=== PATIENT | male | born 1990 | race Caucasian/White ===

== ENCOUNTER 2016-12-16 13:51 | Emergency (ER) | payer MEDICAID ==
[2016-12-16] MEDS ORDERED: DEXAMETHASONE 10 MG/ML VIAL PO STA (16:42)
[2016-12-16] MEDS ORDERED: KETOROLAC 60 MG/2 ML VIAL IM STA (16:42)
[2016-12-16] MEDS ORDERED: DEXAMETHASONE 10 MG/ML VIAL ONE (16:49)
[2016-12-16] MEDS ORDERED: KETOROLAC 60 MG/2 ML VIAL ONE (16:49)
[2016-12-16] MEDS ORDERED: CHERRY SYRUP 10 ML UDC PO ONE (16:49)
[2016-12-16] MEDS ORDERED: HYDROmorphone 1 MG/ML SYRINGE IM STA (17:20)
[2016-12-16] MEDS ORDERED: ONDANSETRON ODT 4 MG TABLET TL STA (17:20)
[2016-12-16] MEDS ORDERED: ONDANSETRON ODT 4 MG TABLET ONE (17:30)
[2016-12-16] MEDS ORDERED: HYDROmorphone 1 MG/ML SYRINGE ONE (17:30)
== END 2016-12-16 17:42 | disposition home or self-care (01) ==
DX: M54.42 Lumbago with sciatica, left side (principal); G89.29 Other chronic pain; F17.200 Nicotine dependence, unspecified, uncomplicated
CPT/HCPCS: 96372; 99283; 99284; A9270; J1170; Q0162

== ENCOUNTER 2017-01-01 | Emergency (ER) | payer MEDICAID | END 2017-01-01 16:26 | disposition home or self-care (01) ==

== ENCOUNTER 2017-02-09 08:34 | Outpatient (CLI) | payer MEDICAID ==
[2017-02-09] MEDS ORDERED: GADOBUTROL 10 MMOL/10 ML VIAL IVP ONE (09:38)
== END 2017-02-09 08:35 | disposition home or self-care (01) ==
DX: M51.16 Intervertebral disc disorders with radiculopathy, lumbar region (principal); M48.06 Spinal stenosis, lumbar region
CPT/HCPCS: 72158; A9585

== ENCOUNTER 2018-01-25 11:29 | Outpatient (CLI) | payer MEDICAID ==
--- NOTE | 2018-01-25 13:41 | XRAY Report ---
THREE VIEW LEFT HAND: 01/25/2018 CLINICAL INDICATION: Pain. FINDINGS: AP, lateral, oblique views of the left hand demonstrate no evidence of fracture or dislocation. The joint spaces are preserved. No radiopaque foreign body is seen in the soft tissues. IMPRESSION: NORMAL LEFT HAND. TD: 01/25/2018 13:40
--- NOTE | 2018-01-25 13:42 | XRAY Report ---
FOUR VIEW LEFT WRIST: 01/25/2018 CLINICAL INDICATION: Pain. FINDINGS: AP, lateral, oblique, scaphoid views of the left wrist demonstrate no evidence of fracture or dislocation. The joint spaces are preserved. No radiopaque foreign body is seen in the soft tissues. IMPRESSION: NORMAL LEFT WRIST. TD: 01/25/2018 13:41
== END 2018-01-25 11:30 | disposition home or self-care (01) ==
LOC: DI.N 11:29
PROVIDERS: ATTEND Family Medicine
DX: M79.642 Pain in left hand (principal); M25.532 Pain in left wrist

== ENCOUNTER 2018-01-29 11:29 | Outpatient (CLI) | payer MEDICAID ==
--- NOTE | 2018-01-29 13:32 | XRAY Report ---
COMPLETE CERVICAL SPINE: 01/29/2018 CLINICAL INDICATION: Neck pain. FINDINGS: AP, lateral, oblique, odontoid views of the cervical spine are compared to previous MRI of 05/06/2014. Minimal anterolisthesis of C2 on C3 is stable from MRI. There is no evidence of interval fracture or subluxation. The prevertebral soft tissues are unremarkable. Minimal osseous neural foraminal narrowing is noted at C3-C4 bilaterally. IMPRESSION: NO SIGNIFICANT INTERVAL CHANGE FROM PREVIOUS MRI. NO EVIDENCE OF INTERVAL FRACTURE. TD: 01/29/2018 13:31
== END 2018-01-29 11:30 | disposition home or self-care (01) ==
LOC: DI.N 11:29
PROVIDERS: ATTEND Family Medicine
DX: M54.2 Cervicalgia (principal)
CPT/HCPCS: 72050

== ENCOUNTER 2018-08-11 09:19 | Outpatient (CLI) | payer MEDICAID ==
--- NOTE | 2018-08-11 15:24 | MRI Report ---
Reason: SCIATICA DISC DEGENERATION Procedure Date: 08/11/2018 Accession Number: [id number] / [id number] Procedure: MRI - Lumbar Spine W/O CPT Code: FULL RESULT: EXAM: MRI LUMBAR SPINE WITHOUT CONTRAST EXAM DATE: 08/11/2018 10:05 AM. CLINICAL HISTORY: 28-year-old male. SCIATICA DISC DEGENERATION. COMPARISON: LUMBAR SPINE W/WO 02/09/2017 8:58 AM. TECHNIQUE: Multiplanar, multisequence T1-weighted and fluid-sensitive sequences of the lumbar spine from T12 to S1 without contrast. Other: None. FINDINGS: Spinal Canal: The conus terminates at L1. The conus medullaris and cauda equina are unremarkable. Alignment: No scoliosis or spondylolisthesis. Bone Marrow: Five wrz-mat-[id number] lumbar vertebral bodies are assumed. No gross fractures or bone lesions. No bone marrow replacement. Disk Levels/Facets: T10-T11: Moderate disk height loss and desiccation. Moderate diffuse disk bulge. Mild to moderate central canal narrowing. No foraminal narrowing. No interval progression. T11-T12: Unremarkable. T12-L1: Mild diffuse disk bulge. No significant central canal or foraminal narrowing. L1-L2: Mild disk height loss and desiccation. Mild diffuse disk bulge. No significant central canal or foraminal narrowing. No interval progression. L2-L3: Moderate disk height loss and desiccation. Moderate diffuse disk bulge with an annular fissure. Mild central canal narrowing. No foraminal narrowing. No interval progression. L3-L4: Status post left hemilaminotomy. Moderate disk height loss and desiccation. Mild to moderate diffuse disk bulge. Mild bilateral facet arthropathy. No residual central canal narrowing. Mild bilateral foraminal narrowing. No interval progression. L4-L5: Status post left hemilaminotomy. Moderate to severe disk height loss and desiccation. Moderate diffuse disk bulge with superimposed left central disk protrusion measuring 4 mm (series 601 image 9) this is decreased since the prior study. Also the previously seen left anterior epidural sequestered fragment is no longer noted. Mild central canal narrowing, improved since the prior study. Moderate left and [id number] right foraminal narrowing. The foraminal narrowing is unchanged. Moderate left lateral recess narrowing with mass-effect on traversing left S1 nerve, slightly decreased L5-S1: Moderate to severe disk height loss and desiccation. Moderate bilateral facet arthropathy. Mild diffuse disk bulge. No significant central canal narrowing. Mild bilateral foraminal narrowing. No interval progression Musculature: Normal. No edema or fatty atrophy. Other: The partially visualized retroperitoneum is unremarkable. IMPRESSION: 1. Moderate multilevel degenerative spondylosis, as detailed above and summarized below. There has been slight interval improvement of central canal/foraminal narrowing at the L4-L5 level, as detailed above. The remaining lumbar levels are unchanged. No evidence of acute fracture or malalignment. No bone marrow edema. No cord signal abnormality. 2. T10-T11 level demonstrates mild to moderate central canal narrowing. No foraminal narrowing. No interval progression. 3. L2-L3 level demonstrates mild central canal narrowing. No foraminal narrowing. No interval progression. 4. L3-L4 level demonstrates no residual central canal narrowing. Mild bilateral foraminal narrowing. No interval progression. 5. L4-L5 level demonstrates a moderate diffuse disk bulge with superimposed left central disk protrusion measuring 4 mm (series 601 image 9), this is decreased since the prior study. Also the previously seen left anterior epidural sequestered disk fragment is no longer noted. Mild central canal narrowing, improved since the prior study. Moderate left and skng-bl-[id number] right foraminal narrowing. The foraminal narrowing is unchanged. Moderate left lateral recess narrowing with mass-effect on traversing left S1 nerve, slightly decreased 6. L5-S1 level demonstrates no significant central canal narrowing. Mild bilateral foraminal narrowing. No interval progression Comment: The following findings are so common in adults without low back pain that while we report their presence, they must be interpreted with caution and in the context of the clinical situation. (Reference Cesark et al, Spine 2001) Prevalence of findings in patients without low back pain: Disk degeneration (any evidence): 92% Disk desiccation/T2 signal loss: 83% Disk height loss: 56% Disk bulge: 64% Disk protrusion: 32% Annular tear/high intensity zone: 38% RADIA
== END 2018-08-11 09:20 | disposition home or self-care (01) ==
LOC: DI 09:19
PROVIDERS: ATTEND Family Medicine
DX: M51.16 Intervertebral disc disorders with radiculopathy, lumbar region (principal); M51.36 Other intervertebral disc degeneration, lumbar region; M47.896 Other spondylosis, lumbar region; M48.061 Spinal stenosis, lumbar region without neurogenic claudication
CPT/HCPCS: 72148

== ENCOUNTER 2018-11-13 10:35 | Outpatient (CLI) | payer MEDICAID ==
--- NOTE | 2018-11-13 13:31 | Ultrasound Report ---
Reason: CERVICALGIA,UNQUALIFIED VISUAL LOSS,BOTH EYES Procedure Date: 11/13/2018 Accession Number: [id number] / [id number] Procedure: US - Carotid Doppler Complete CPT Code: FULL RESULT: EXAM: BILATERAL CAROTID AND VERTEBRAL ARTERY DUPLEX DOPPLER ULTRASOUND: EXAM DATE: 11/13/2018 11:12 AM CLINICAL HISTORY: Cervicalgia, unqualified visual loss, both eyes. COMPARISON: None. TECHNIQUE: Grayscale imaging, color Doppler, and duplex spectral Doppler were used to evaluate the carotid and vertebral arteries bilaterally. Static images were obtained. FINDINGS: No significant plaque is identified in the right or left common or internal carotid arteries. Normal antegrade flow is present in bilateral vertebral arteries. VELOCITIES (cm/sec): Right CCA mid: PSV 125 cm/sec CCA dist: PSV 111 cm/sec ICA prox: PSV 88 cm/sec, EDV 30 cm/sec ICA mid: PSV 80 cm/sec, EDV 36 cm/sec ICA dist: PSV 72 cm/sec, EDV 31 cm/sec ECA: PSV 114 cm/sec Vert: PSV 48 cm/sec ICA/CCA: 0.70 Left CCA mid: PSV 113 cm/sec CCA dist: PSV 101 cm/sec ICA prox: PSV 80 cm/sec, EDV 26 cm/sec ICA mid: PSV 97 cm/sec, EDV 34 cm/sec ICA dist: PSV 88 cm/sec, EDV 35 cm/sec ECA: PSV 87 cm/sec Vert: PSV 49 cm/sec ICA/CCA: 0.85 ICA diameter stenosis: Right: Normal by velocity and <70% by NASCET criteria. Left: Normal by velocity and <70% by NASCET criteria. IMPRESSION: 1. No significant bilateral carotid artery plaquing. 2. In the right carotid artery there are no elevated carotid artery velocities to suggest hemodynamically significant stenosis. 3. In the left carotid artery there are no elevated carotid artery velocities to suggest hemodynamically significant stenosis. 4. Normal antegrade flow is present in bilateral vertebral arteries. General Recommendations: Stenosis =50% ICA - Follow-up ultrasound 6-12 months Stenosis <50% ICA - High Risk Patient with plaque - Follow-up ultrasound 1-2 years Normal Study but High Risk Patient - Follow-up ultrasound 3-5 years Management recommendations and diagnostic criteria are based on current IAC endorsed standards in Carotid Artery Stenosis: Grayscale and Doppler Ultrasound Diagnosis. Validated velocity measurements with angiographic measurements and velocity criteria are extrapolated from diameter data as defined by the Society of Radiologists in Ultrasound Consensus Conference Radiology 2003; 229;340-346. RADIA
--- NOTE | 2018-11-13 13:44 | XRAY Report ---
Reason: CERVICALGIA Procedure Date: 11/13/2018 Accession Number: [id number] / [id number] Procedure: XR - Cervical Spine Complete CPT Code: FULL RESULT: EXAM: CERVICAL SPINE RADIOGRAPHY EXAM DATE: 11/13/2018 11:20 AM. CLINICAL HISTORY: CERVICALGIA. COMPARISONS: CERVICAL SPINE COMPLETE 01/29/2018 11:49 AM CERVICAL SPINE 05/06/2014 10:34 AM. TECHNIQUE: 5 views. FINDINGS: Alignment: There is similar minimal 2 mm anterolisthesis at C2-C3 which may be degenerative. Alignment is otherwise normal. Bones: The cervical vertebral bodies and posterior elements are well visualized from the skull base through C7-T1. No fractures or bone lesions. Disks: Stable mild anterior disk height loss at C2-C3. Disk heights are otherwise preserved without significant degenerative endplate changes. There is apparent minor mid to lower cervical facet degeneration. There is evidence of at least mild bony neural foraminal stenosis on the right at C3-C4, C4-C5, C5-C6, and on the left at C4-C5 and C6-C7. Facets: As above. Soft Tissues: No prevertebral soft tissue swelling. The visualized lung apices are clear. IMPRESSION: 1. No acute osseous abnormality. 2. Stable minimal anterolisthesis of C2 on C3. 3. Minimal cervical degenerative changes. RADIA
== END 2018-11-13 10:36 | disposition home or self-care (01) ==
LOC: DI 10:35
PROVIDERS: ATTEND Family Medicine
DX: M50.31 Other cervical disc degeneration, high cervical region (principal); M48.02 Spinal stenosis, cervical region; H54.3 Unqualified visual loss, both eyes
CPT/HCPCS: 72050; 93880

== ENCOUNTER 2019-07-09 07:26 | Outpatient (CLI) | payer MEDICAID ==
[2019-07-09] MEDS ORDERED: GADOBUTROL 10 MMOL/10 ML VIAL ONE (07:33)
[2019-07-09] MEDS ORDERED: GADOBUTROL 10 MMOL/10 ML VIAL IVP ONE (09:55)
--- NOTE | 2019-07-11 07:26 | MRI Report ---
Reason: VISUAL LOSS, TRANSIENT, BILATERAL Procedure Date: 07/09/2019 Accession Number: [id number] / [id number] Procedure: MRI - Angio Brain W/O (MRA) CPT Code: FULL RESULT: EXAM MRA BRAIN EXAM DATE: 07/09/2019 08:31 AM. CLINICAL HISTORY: 29-year-old man with transient bilateral vision loss. COMPARISON: None. TECHNIQUE: Multiplanar, multisequence MRA sequences of the brain were performed. Other: None. Post-processing: Multiplanar 3D MIP reconstructions. IV Contrast: None. FINDINGS: RIGHT: - Visualized Internal Carotid: Patent without significant stenosis or aneurysm. - Anterior Cerebral: Patent without significant stenosis or aneurysm. - Middle Cerebral: Patent without significant stenosis or aneurysm. - Posterior Cerebral: Patent without significant stenosis or aneurysm. - Posterior Communicating: Not well seen. - Visualized Vertebral: Patent without significant stenosis or dissection. LEFT: - Visualized Internal Carotid: Patent without significant stenosis or aneurysm. - Anterior Cerebral: Patent without significant stenosis or aneurysm. - Middle Cerebral: Patent without significant stenosis or aneurysm. - Posterior Cerebral: Patent without significant stenosis or aneurysm. - Posterior Communicating: Not well seen. - Visualized Vertebral: Patent without significant stenosis or dissection. CENTRAL: - Anterior Communicating: Patent. No aneurysm. - Basilar: Patent without significant stenosis, dissection, or aneurysm. IMPRESSION: 1. Normal MRA of the head. No significant vascular stenosis or aneurysm. RADIA
--- NOTE | 2019-07-11 07:52 | MRI Report ---
Reason: VISUAL LOSS, TRANSIENT, BILATERAL Procedure Date: 07/09/2019 Accession Number: [id number] / [id number] Procedure: MRI - Brain W/WO CPT Code: FULL RESULT: EXAM: MRI BRAIN WITHOUT AND WITH CONTRAST EXAM DATE: 07/09/2019 09:53 AM. CLINICAL HISTORY: 29-year-old man with transient bilateral visual loss. COMPARISON: None. TECHNIQUE: Multiplanar, multisequence T1-weighted and fluid-sensitive MR sequences of the brain were performed. Sequences optimized for routine evaluation. Other: None. IV Contrast: . FINDINGS: Parenchyma: No evidence of acute infarct on diffusion weighted sequence. Parenchyma demonstrates normal signal intensity on T1- and T2-weighted sequences. No evidence of prior hemorrhage on susceptibility weighted sequence. No abnormal enhancement. Pituitary: Unremarkable. Ventricles and Extra-axial Spaces: Ventricles are symmetric and normal in size for age. Extra-axial spaces are unremarkable. No abnormal enhancement. Orbits: Unremarkable. Sinuses: Paranasal sinuses and mastoid air cells are clear. Major Vascular Flow Voids: Intact. Dural Venous Sinuses and Major Central Veins: Patent on post-contrast images. IMPRESSION: 1. Normal brain MRI. No evidence of infarct, hemorrhage, or mass lesion. RADIA
--- NOTE | 2019-07-12 16:47 | MRI Report ---
Reason: VISUAL LOSS, TRANSIENT, BILATERAL Procedure Date: 07/09/2019 Accession Number: [id number] / [id number] Procedure: MRI - Angio Neck W/WO (MRA) CPT Code: FULL RESULT: EXAM: MR ANGIOGRAM NECK EXAM DATE: 07/09/2019 11:35 AM. CLINICAL HISTORY: 29-year-old man with transient bilateral visual loss. COMPARISON: None. TECHNIQUE: Multiplanar, multisequence MRA sequences of the neck were performed. Other: None. Post-processing: Multiplanar 3D MIP reconstructions. IV Contrast: 10 cc Gadavist. Evaluation of arterial stenosis is based on a NASCET method of measurement. FINDINGS: RIGHT Common Carotid: Patent. No dissection or significant stenosis. Internal Carotid: Patent. No dissection or significant stenosis. External Carotid: Patent. No dissection or significant stenosis. Vertebral: Patent. No dissection or significant stenosis. LEFT Common Carotid: Patent. No dissection or significant stenosis. Internal Carotid: Patent. No dissection or significant stenosis. External Carotid: Patent. No dissection or significant stenosis. Vertebral: Patent. No dissection or significant stenosis. Other: Limited evaluation of the neck soft tissues is unremarkable. IMPRESSION: 1. Normal. No significant vascular stenosis or dissection. RADIA
== END 2019-07-09 07:27 | disposition home or self-care (01) ==
LOC: DI 07:26
PROVIDERS: ATTEND Psychiatry & Neurology Vascular Neurology
DX: H53.123 Transient visual loss, bilateral (principal)
CPT/HCPCS: 70549; 70553; A9585; 70544

== ENCOUNTER 2020-07-26 11:21 | Outpatient (CLI) | payer MEDICAID ==
[2020-07-26] MEDS ORDERED: IOVERSOL 320 100 ML VIAL IVP ONE (16:10)
== END 2020-07-26 11:22 ==
LOC: EMS 11:21
PROVIDERS: ATTEND Surgery
DX: M79.605 Pain in left leg (principal); M54.5 Low back pain; M25.552 Pain in left hip

== ENCOUNTER 2020-07-26 15:08 | Emergency (ER) | payer OTHER, MEDICAID ==
[2020-07-26] MEDS ORDERED: KETOROLAC 30 MG/ML VIAL IVP STA (15:52)
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
[2020-07-26 16:18] LABS: BASOPHILS # (AUTO) 0.1 10^3/uL (0.0-0.1); BASOPHILS % (AUTO) 0.3 %; EOSINOPHILS # (AUTO) 0.1 10^3/uL (0.0-0.7); EOSINOPHILS % (AUTO) 0.8 %; HGB - HEMOGLOBIN 12.9 g/dL (14.0-18.0); LYMPHOCYTES # (AUTO) 2.1 10^3/uL (1.5-3.5); LYMPHOCYTES % (AUTO) 11.4 %; MEAN CORPUSCULAR HEMOGLOBIN 31.1 pg (27.0-31.0); MEAN CORPUSCULAR HGB CONC 33.9 g/dL (32.0-36.0); MEAN CORPUSCULAR VOLUME 91.6 fL (80.0-94.0); MEAN PLATELET VOLUME 13.5 fL (7.4-11.4); MONOCYTES # (AUTO) 0.8 10^3/uL (0.0-1.0); MONOCYTES % (AUTO) 4.4 %; NEUTROPHILS # (AUTO) 14.8 10^3/uL (1.5-6.6); NEUTROPHILS % (AUTO) 82.5 %; PLT - PLATELET COUNT 213 10^3/uL (130-450); RED BLOOD COUNT 4.15 10^6/uL (4.70-6.10); RED CELL DISTRIBUTION WIDTH 14.3 % (12.0-15.0); WHITE BLOOD COUNT 17.9 x10^3/uL (4.8-10.8)
[2020-07-26 16:36] LABS: ALBUMIN 4.4 g/dL (3.2-5.5); ALBUMIN/GLOBULIN RATIO 1.5 (1.0-2.2); ALKALINE PHOSPHATASE 69 IU/L (42-121); ALT ALANINE AMINOTRANSFERASE 39 IU/L (10-60); AST ASPARTATE AMINOTRANSFERASE 40 IU/L (10-42); BUN - BLOOD UREA NITROGEN 11 mg/dL (6-20); CALCIUM 9.1 mg/dL (8.5-10.3); CARBON DIOXIDE - CO2 23 mmol/L (21-32); CHLORIDE 105 mmol/L (101-111); CREATININE 0.9 mg/dL (0.6-1.2); GLUCOSE 112 mg/dL (70-100); LIPASE 22 U/L (22-51); SODIUM 139 mmol/L (135-145); TOTAL PROTEIN 7.3 g/dL (6.7-8.2)
--- NOTE | 2020-07-26 17:17 | CT Report ---
PROCEDURE: CERVICAL SPINE WO INDICATIONS: Neck trauma, midline tenderness TECHNIQUE: Noncontrast 3 mm thick sections acquired from the skull base to the T4 level. Sagittal and coronal r eformats were then constructed. For radiation dose reduction, the following was used: automated exp osure control, adjustment of mA and/or kV according to patient size. COMPARISON: None. FINDINGS: Image quality: Excellent. Bones: No fractures or dislocations. Visualized superior ribs are intact. Note is made of an ovoid centrally lucent peripherally calcified structure measuring up to 1.0 x 1.3 cm at the posterior jeff in of the C1-C2 facet joint, likely chronic. Soft tissues: Prevertebral soft tissues are normal in thickness. No paravertebral hematomas. No ap ical pneumothoraces. IMPRESSION: No acute trauma found but there is an unusual ovoid cystic-like structure with peripheral calcificati on involving the posterior margin of the C1-C2 facet joint articulation which may impinge on the frances vidual nerve root and etiology is uncertain. Therefore follow-up elective contrast-enhanced MR scanni ng is recommended for this patient in the near future. Please correlate for left-sided symptomatology from the past that may be referrable to this structure. Reviewed by: Valentino Davidson MD on 07/26/2020 5:15 PM PDT Approved by: Valentino Davidson MD on 07/26/2020 5:15 PM PDT Station ID: [id number]
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
[2020-07-26 17:20] LABS: MUDS CUTOFF CONCENTRATIONS CUTOFF CONC BELOW:
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
[2020-07-26] MEDS ORDERED: IOVERSOL 320 100 ML VIAL IVP ONE (17:35)
[2020-07-26 17:38] LABS: AMPHETAMINE SCREEN,URINE NEGATIVE (NEGATIVE); BENZODIAZEPINES SCREEN, URINE NEGATIVE (NEGATIVE); COCAINE SCREEN URINE NEGATIVE (NEGATIVE); METHADONE SCREEN, URINE NEGATIVE (NEGATIVE); METHAMPHETAMINES SCREEN, URINE NEGATIVE (NEGATIVE); OPIATE SCREEN, URINE POSITIVE (NEGATIVE); OXYCODONE SCREEN, URINE NEGATIVE (NEGATIVE); PROPOXYPHENE SCREEN, URINE NEGATIVE (NEGATIVE); TRICYCLIC ANTIDEPRESSANT,URINE NEGATIVE (NEGATIVE)
[2020-07-26 18:03] VITALS: BP 107/56
== END 2020-07-26 18:13 | disposition home or self-care (01) ==
LOC: ED 15:08
DX: Z04.1 Encounter for examination and observation following transport accident (principal); R93.7 Abnormal findings on diagnostic imaging of other parts of musculoskeletal system; F17.200 Nicotine dependence, unspecified, uncomplicated
CPT/HCPCS: 36415; 70450; 71260; 72125; 74177; 80053; 80306; 80320; 83690; 85025; 96374; 99284

== ENCOUNTER 2021-01-28 08:01 | Outpatient (CLI) | payer OTHER, MEDICAID | END 2021-01-28 08:02 | disposition EMS.NT | LOC: EMS 08:01 | DX: S00.81XA Abrasion of other part of head, initial encounter (principal); S40.212A Abrasion of left shoulder, initial encounter; M54.2 Cervicalgia; R07.89 Other chest pain; V47.5XXA Car driver injured in collision with fixed or stationary object in traffic accident, initial encounter; Y93.89 Activity, other specified; Y92.413 State road as the place of occurrence of the external cause ==

== ENCOUNTER 2021-05-23 14:00 | Outpatient (CLI) | payer MEDICAID, OTHER | END 2021-05-23 14:01 | disposition other institution (70) | LOC: EMS 14:00 | DX: Z04.1 Encounter for examination and observation following transport accident (principal); M54.5 Low back pain; M25.552 Pain in left hip ==